=== PATIENT | male | born 1990 ===

== ENCOUNTER 2020-12-16 10:27 | Outpatient (CLI) | payer SELFPAY | END 2020-12-16 10:28 | disposition EMS.NT | LOC: EMS 10:27 | DX: R40.4 Transient alteration of awareness (principal) ==

== ENCOUNTER 2021-11-21 12:58 | Emergency (ER) | payer OTHER ==
--- NOTE | 2021-11-21 13:04 | ED Physician Documentation ---
History of Present Illness - Stated complaint Stated Complaint: FIT FOR CONFINEMENT - History obtained from History obtained from: Patient, Police - Additonal information Additional information: The patient is brought to the emergency department by police after attempting to escape after arrest and being pepper sprayed to help apprehend him. Patient complains of pain and burning and hypersecretion throughout his mouth and also throughout his nose. No difficulty breathing. No other injuries or complaints. Review of Systems Ten Systems: 10 systems reviewed and negative Constitutional: reports: Reviewed and negative Eyes: reports: Reviewed and negative Ears: reports: Reviewed and negative Nose: reports: Reviewed and negative Throat: reports: Reviewed and negative Cardiac: reports: Reviewed and negative Respiratory: reports: Reviewed and negative GI: reports: Reviewed and negative : reports: Reviewed and negative Skin: reports: Reviewed and negative Musculoskeletal: reports: Reviewed and negative Neurologic: reports: Reviewed and negative Psychiatric: reports: Reviewed and negative Endocrine: reports: Reviewed and negative Immunocompromised: reports: Reviewed and negative PD PAST MEDICAL HISTORY - Allergies Allergies/Adverse Reactions: Allergies Allergy/AdvReac Type Severity Reaction Status Date / Time Unable to Assess Allergy Verified 11/21/21 13:11 PD ED PE NORMAL - Vitals Vital signs reviewed: Yes - General General: Other (The patient is writhing and crying. ) - HEENT HEENT: Atraumatic, Moist mucous membranes, Other ( He is drooling and has strings of mucus hanging out of his nose.) - Neck Neck: Supple, no meningeal sign - Cardiac Cardiac: RRR, No murmur, Strong equal pulses - Respiratory Respiratory: No respiratory distress, Clear bilaterally - Derm Derm: Normal color, Warm and dry, No rash - Extremities Extremities: No deformity, No edema, No calf tenderness / cord - Neuro Neuro: Alert and oriented X 3 - Psych Psych: Normal mood, Normal affect PD MEDICAL DECISION MAKING - ED course Complexity details: considered differential, d/w patient ED course: The patient's nasal cavities and oral cavity were irrigated with saline. We discussed the self-limited nature of the patient's symptoms. He did not have any evidence of airway swelling or compromise and was in no respiratory distress. He was deemed clear to book and stable for discharge. Departure - Departure Disposition: 01 Home, Self Care Clinical Impression: Toxic effect of pepper spray Qualifiers: Encounter type: initial encounter Injury intent: undetermined intent Qualified Code(s): T65.894A - Toxic effect of other specified substances, undetermined, initial encounter Condition: Stable Comments: In general, while unpleasant, the effects of pepper spray are temporary. You will most likely have some burning for the next hour or so but this should steadily diminished. The production of mucus and saliva will also diminish as your the pepper spray wears off. Please drink plenty of fluids and rinse your nose out with salt water as needed. You are cleared to proceed with booking by the police. Discharge Date/Time: 11/21/21 13:12
== END 2021-11-21 13:12 | disposition home or self-care (01) ==
LOC: ED 12:58
DX: T59.3X4A Toxic effect of lacrimogenic gas, undetermined, initial encounter (principal)
CPT/HCPCS: 99281; 99282